=== PATIENT | female | born 1990 | race American Indian/Alaskan Native ===

== ENCOUNTER 2020-07-19 21:14 | Emergency (ER) | payer SELFPAY ==
--- NOTE | 2020-07-19 23:35 | Emergency Department Report ---
ED General Adult HPI - General Chief complaint: Medical Clearance Stated complaint: MH EVALUATION PUI?: No Time Seen by Provider: 07/19/20 23:22 Source: patient, EMS ( EMS documentation not available at time of chart dict ation ), RN notes reviewed Mode of arrival: Ambulatory Limitations: No Limitations - History of Present Illness Initial comments: The patient was evaluated in the emergency department for symptoms described in the history of present illness. He/she was evaluated in the context of the global COVID-19 pandemic, which necessitated consideration that the patient might be at risk for infection with the virus that causes COVID-19. Institutional protocols and algorithms that pertain to the evaluation of patie nts at risk for COVID-19 are in a state of rapid change based on information released by regulatory bodies including the CDC and federal and state organizations. These policies and algorithms were followed during the patient's care in the emergency department. Please note that these policies, procedures and recommendations changed on a rapid basis. Patient is a 29-year-old female. She is not known to this previously. She states that she is not and has not delivered her given in the past 6 weeks. Patient states that she has a history of bipolar 1. Patient states she was diagnosed with this in [place], many years ago. She was reportedly on lithium. However, she has not been on lithium for 2 years. She presents to the ER today with a complaint of painless request for lithium refill. She denies physical pain, homicidality, suicidality, access to guns, firearms, and hallucinations. She does not have a local primary care doctor or psychiatrist. She denies addit ional injuries, and denies additional complaints. She is self-employed, and works as a hairdresser/hairstylist. Improves with: none Worsens with: none Associated Symptoms: denies other symptoms - Related Data Allergies Allergy/AdvReac Type Severity Reaction Status Date / Time haloperidol [From Haldol] Allergy Angioedema Verified 07/19/20 21:50 ED Review of Systems ROS: Stated complaint: MH EVALUATION Other details as noted in HPI Comment: All other systems reviewed and negative ED Past Medical Hx - Past Medical History Previous Medical History?: Yes Hx Psychiatric Treatment: Yes (Bipolar Disorder #1) - Surgical History Past Surgical History?: No - Social History Smoking Status: Never Smoker ED Physical Exam - General Limitations: No Limitations General appearance: alert, in no apparent distress - Head Head exam: Present: atraumatic, normocephalic - Eye Eye exam: Present: normal appearance, PERRL, EOMI. Absent: nystagmus - ENT ENT exam: Present: normal exam, normal orophraynx, mucous membranes moist, normal external ear exam - Neck Neck exam: Present: normal inspection, full ROM. Absent: tenderness, meningismus - Respiratory Respiratory exam: Present: normal lung sounds bilaterally. Absent: respiratory distress, wheezes, rales, rhonchi, stridor, decreased breath sounds - Cardiovascular Cardiovascular Exam: Present: regular rate, normal rhythm, normal heart sounds. Absent: bradycardia, tachycardia, irregular rhythm, systolic murmur, diastolic murmur, rubs, gallop - GI/Abdominal GI/Abdominal exam: Present: soft. Absent: distended, tenderness, guarding, rebound, rigid, pulsatile mass - Extremities Exam Extremities exam: Present: normal inspection, full ROM, other (2+ pulses noted in the bilateral upper and lower extremities. There is no palpable cord. negative Homans sign. Muscular compartments are soft. The pelvis is stable.). Absent: pedal edema, calf tenderness - Back Exam Back exam: Present: normal inspection, full ROM. Absent: tenderness, CVA tenderness (R), CVA tenderness (L), paraspinal tenderness, vertebral tenderness - Neurological Exam Neurological exam: Present: alert, oriented X3, normal gait, other (No facial droop. Tongue midline. Extraocular movements intact bilaterally. Facial sensation intact to light touch in V1, V2, V3 distribution bilaterally. 5 and a 5 strength in 4 extremities. Sensation intact to light touch in 4 extremities.). Absent: motor sensory deficit - Psychiatric Psychiatric exam: Present: normal affect, normal mood. Absent: homicidal ideation, suicidal ideation - Skin Skin exam: Present: warm, dry, intact, normal color. Absent: rash ED Course Vital Signs 07/19/20 07/19/20 21:54 23:49 Temperature 97.6 F Pulse Rate 82 82 Respiratory 18 Rate Blood Pressure 128/79 Blood Pressure 117/85 [Left] O2 Sat by Pulse 100 99 Oximetry ED Medical Decision Making - Lab Data Vital Signs 07/19/20 07/19/20 21:54 23:49 Temperature 97.6 F Pulse Rate 82 82 Respiratory 18 Rate Blood Pressure 128/79 Blood Pressure 117/85 [Left] O2 Sat by Pulse 100 99 Oximetry - Medical Decision Making Differential diagnosis, including but not limited to: General medical exam Assessment and plan: 29-year-old female, who was afebrile, with reassuring vital signs, clinically sober, with a GCS of 15, who does not appear to have an emergent medical condition present, who presents as alert, oriented, sober, goal-directed, does not appear to be in acute crisis, does not meet criteria for 1013. Explained to patient that since she has not been on lithium for 2 years, it would not be appropriate to initiate, especially in the absence of symptoms, without close monitoring and outpatient follow-up. Patient verbalized understanding. Patient will be referred to local primary care and/or psychiatry to follow-up as an outpatient. Patient at this point time does not appear to have an emergent medical or psychiatric condition present. Critical care attestation.: If time is entered above; I have spent that time in minutes in the direct care of this critically ill patient, excluding procedure time. ED Disposition Clinical Impression: General medical exam Disposition: [id number] TO HOME OR SELFCARE Is pt being admited?: No Does the pt Need Aspirin: No Condition: Stable Additional Instructions: Please follow-up with an outpatient primary care doctor or psychiatrist/therapist within the next month. For the patient's convenience, local clinics/primary care/outpatient mental health facilities have been listed. Patient may also follow-up with either [facility] and the [place] [facility] facility, if she so desires. Please return to the emergency room right away with new pain, worsening pain, mi gration of pain, projectile vomiting, change in mental status, confusion, inability to tolerate liquid feeds, new, worsening or different symptoms not present on the initial emergency room evaluation [facility] in [place], [place] COVID-19 info: [email or web address] Get online care: [email or web address] Address: [address], [place] [address] Hours: Open 24 hours [facility] in the [place], [place] Get online care: [email or web address] Located in: [facility] Address: [address] [place] [id number] Referrals: GABE MCCLAIN MD [Staff Physician] - 3-5 Days [facility] [Provider Group] - 3-5 Days [facility] [Outside] - 3-5 Days
[2020-07-19 23:50] VITALS: BP 117/85
== END 2020-07-20 00:30 | disposition home or self-care (01) ==
LOC: ED 21:14
DX: Z00.00 Encounter for general adult medical examination without abnormal findings (principal); F31.9 Bipolar disorder, unspecified; Z88.8 Allergy status to other drugs, medicaments and biological substances
CPT/HCPCS: 99283